=== PATIENT | male | born 1965 | race Caucasian/White ===

== ENCOUNTER 2023-11-16 08:59 | Outpatient (CLI) | payer OTHER, SELFPAY | END 2023-11-16 09:00 | disposition home or self-care (01) | PROVIDERS: PCP Internal Medicine; Visit Provider Internal Medicine | DX: Z13.228 Encounter for screening for other metabolic disorders (principal); Z13.220 Encounter for screening for lipoid disorders; Z12.5 Encounter for screening for malignant neoplasm of prostate | CPT/HCPCS: 80053; 80061; G0103 ==

== ENCOUNTER 2024-11-25 07:35 | Outpatient (CLI) | payer OTHER, SELFPAY | END 2024-11-25 07:36 | disposition home or self-care (01) | LOC: NFLDREF 11-26 23:48 | PROVIDERS: PCP Internal Medicine; Referring Provider Internal Medicine; Visit Provider Internal Medicine | DX: N40.0 Benign prostatic hyperplasia without lower urinary tract symptoms (principal); E80.4 Gilbert syndrome; Z12.5 Encounter for screening for malignant neoplasm of prostate; Z01.84 Encounter for antibody response examination | CPT/HCPCS: 80053; 80061; 84403; 86765; G0103 ==

== ENCOUNTER 2025-01-12 08:05 | Outpatient (CLI) | payer OTHER, SELFPAY ==
--- NOTE | 2025-01-12 09:46 | P.ANES_ITS ---
Anesthesia Charges Start Date/Time Anesthesia Start Date: 01/12/25 Anesthesia Start Time: 09:17 Stop Date/Time Anesthesia Stop Date: 01/12/25 Anesthesia Stop Time: 09:40 Coding CPT Codes CPT Codes: DIOR LWAyde INTST NDSC NOS - [id number] ([id number]) P2 - PATIENT W/MILD SYST DISEASE, QX - DRAFTER CHIEF DESIGN SVC W/ MD MED DIRECTION, QK - FILLER SPREADER 2-4 CNCRNT ANES PROC
--- NOTE | 2025-01-12 09:46 | W.ANESCHARGE ---
Anesthesia Charges Start Date/Time Anesthesia Start Date: 01/12/25 Anesthesia Start Time: 09:17 Stop Date/Time Anesthesia Stop Date: 01/12/25 Anesthesia Stop Time: 09:40 Coding CPT Codes CPT Codes: DIOR LWAyde INTST NDSC NOS - [id number] ([id number]) P2 - PATIENT W/MILD SYST DISEASE, QX - ACADEMIC PHYSICIAN SVC W/ MD MED DIRECTION, QK - SOLID PROPELLANT PROCESSOR 2-4 CNCRNT ANES PROC
--- NOTE | 2025-01-12 09:48 | P.ANES_ITS ---
Anesthesia Charges Start Date/Time Anesthesia Start Date: 01/12/25 Anesthesia Start Time: 09:17 Stop Date/Time Anesthesia Stop Date: 01/12/25 Anesthesia Stop Time: 09:40 Coding CPT Codes CPT Codes: DIRO LWR INTST NDSC NOS - [id number] ([id number]) P2 - PATIENT W/MILD SYST DISEASE, QK - IMPACT RETAIL SERVICE MERCHANDISER 2-4 CNCRNT ANES PROC, QX - SKILLS AUDITOR SVC W/ MD MED DIRECTION
--- NOTE | 2025-01-12 09:48 | W.ANESCHARGE ---
Anesthesia Charges Start Date/Time Anesthesia Start Date: 01/12/25 Anesthesia Start Time: 09:17 Stop Date/Time Anesthesia Stop Date: 01/12/25 Anesthesia Stop Time: 09:40 Coding CPT Codes CPT Codes: DIOR LWR INTST NDSC NOS - [id number] ([id number]) P2 - PATIENT W/MILD SYST DISEASE, QK - ENROLLMENT MANAGEMENT COORDINATOR 2-4 CNCRNT ANES PROC, QX - INSURANCE SALES PRODUCER SVC W/ MD MED DIRECTION
== END 2025-01-12 08:06 | disposition home or self-care (01) ==
LOC: OP CLINIC 08:05
PROVIDERS: PCP Internal Medicine; Visit Provider Surgery
DX: Z12.11 Encounter for screening for malignant neoplasm of colon (principal); D12.4 Benign neoplasm of descending colon; K57.30 Diverticulosis of large intestine without perforation or abscess without bleeding
CPT/HCPCS: 00811; 45385; 88305; J2704